=== PATIENT | female | born 1945 | race Hispanic/Latino ===

== ENCOUNTER 2016-12-29 10:32 | Outpatient (CLI) | payer MEDICARE ==
--- NOTE | 2016-12-29 12:47 | Mammography Report ---
BONE DEXA:12/29/16 10:32:00 CLINICAL: Postmenopausal. No comparison. TECHNIQUE: Two site bone DEXA performed on an Hologic scanner. FINDINGS: The average BMD of the lumbar spine L1-L4 is 0.820g/cm squared with a T-score of -2.1 and a Z-score of 0. The average BMD of the left hip is 0.619g/cm squared with a T-score of -2.6 and a Z-score of -1.2. IMPRESSION: 1. WHO classification: Osteopenia with increased fracture risk based on lumbar spine measurements. 2. WHO classification: Osteoporosis with high fracture risk based on left hip measurements. RECOMMENDATION: Clinical correlation and routine screening. DEFINITIONS: BMD = Bone Mineral Density T-score = BMD related to mean peak bone mass of young adult (mean expressed in Standard Deviation) Z-score = Age matched BMD expressed in SD World Health Organization (WHO) Diagnostic Criteria Normal T-score > -1 SD Osteopenia T-score between -1 and -2.4 SD Osteoporosis T-score -2.5 SD or below NOTE: BMD is not the only risk factor for fracture. One should also consider factors such as the patient's age, risk of falling, previous osteoporotic fracture, family history of osteoporotic fractures, current smoker, and low body weight. Z-scores are not calculated if >80 years of age.
== END 2016-12-29 10:33 | disposition home or self-care (01) ==
LOC: SPVWC 10:32
PROVIDERS: ATTEND Obstetrics & Gynecology
DX: M81.0 Age-related osteoporosis without current pathological fracture (principal); M85.88 Other specified disorders of bone density and structure, other site; Z78.0 Asymptomatic menopausal state
CPT/HCPCS: 77080

== ENCOUNTER 2017-05-23 13:36 | Outpatient (CLI) | payer MEDICARE ==
--- NOTE | 2017-05-23 15:54 | Mammography Report ---
Left mammogram screening mammogram: Routine views demonstrate a heterogeneously dense fibroglandular pattern which is symmetric in distribution. In the central left breast seen only in the MLO view there is a focal irregular shaped density which is not identified on several prior exams but may have been present 2012. This may represent a function of positioning. No changes are identified in the CC projection. The findings otherwise appear unremarkable and unchanged from multiple prior studies. CAD used. Impression: Left asymmetry. Recommendation: Lateral compression imaging of left breast. Ultrasound, if needed. BI-RADS CATEGORY: 0 = Needs additional imaging evaluation ACR BI-RADS MAMMOGRAPHIC CODES: 0 = Needs additional imaging evaluation; 1 = Negative; 2 = Benign; 3 = Probably benign; 4 = Suspicious; 5 = Malignant; 6 = Known biopsy-proven malignancy COMMENT: 1. Dense breast tissue, i.e., adenosis, fibrocystic changes, etc., may obscure an underlying neoplasm. 2. Approximately 10% of cancers are not detected with mammography. 3. A negative mammography report should not delay biopsy if a clinically suspicious mass is present.
== END 2017-05-23 13:37 | disposition home or self-care (01) ==
LOC: SPVWC 13:36
PROVIDERS: ATTEND Obstetrics & Gynecology
DX: Z12.31 Encounter for screening mammogram for malignant neoplasm of breast (principal)
CPT/HCPCS: 77067; G0202

== ENCOUNTER 2017-05-31 13:52 | Outpatient (CLI) | payer MEDICARE ==
--- NOTE | 2017-05-31 14:59 | Mammography Report ---
LEFT DIGITAL DIAGNOSTIC MAMMOGRAM and LEFT BREAST ULTRASOUND: 05/31/17 13:52:00 CLINICAL: Recalled for asymmetry. COMPARISON:05/23/17 screening mammogram FINDINGS: Lateralmedial, exaggerated CC and spot compression MLO views were performed. A partially circumscribed retroareolar asymmetry persists on MLO spot view but is not identified on the other views. Ultrasound of the left breast (including all four quadrants and the retroareolar area) was performed and demonstrated mild retroareolar duct ectasia with no mass, cyst or shadowing. IMPRESSION: Benign retroareolar duct ectasia. BI-RADS CATEGORY: 1 -- Negative RECOMMENDATION: Routine mammographic screening in one year. ACR BI-RADS MAMMOGRAPHIC CODES: 0 = Needs additional imaging evaluation; 1 = Negative; 2 = Benign; 3 = Probably benign; 4 = Suspicious; 5 = Malignant; 6 = Known biopsy-proven malignancy COMMENT: 1. Dense breast tissue, i.e., adenosis, fibrocystic changes, etc., may obscure an underlying neoplasm. 2. Approximately 10% of cancers are not detected with mammography. 3. A negative mammography report should not delay biopsy if a clinically suspicious mass is present. COMMENT: Patient follow-up letters are generated via our [employer] application.
== END 2017-05-31 13:53 | disposition home or self-care (01) ==
LOC: SPVWC 13:52
PROVIDERS: ATTEND Obstetrics & Gynecology
DX: N60.42 Mammary duct ectasia of left breast (principal)
CPT/HCPCS: 76641; G0206

== ENCOUNTER 2018-06-05 09:09 | Outpatient (CLI) | payer MEDICARE ==
--- NOTE | 2018-06-05 16:15 | Mammography Report ---
BILATERAL DIGITAL SCREENING MAMMOGRAM with CAD: 06/05/18 09:09:00 CLINICAL: Routine screening. COMPARISON:05/23/17 FINDINGS: The breasts are heterogeneously dense, which may obscure small masses. No mass, architectural distortion or suspicious calcifications. IMPRESSION: No mammographic evidence of malignancy. BI-RADS CATEGORY: 1 - - Negative RECOMMENDATION: Routine mammographic screening in one year. COMMENT: Patient follow-up letters are generated by our [employer] application.
== END 2018-06-05 09:10 | disposition home or self-care (01) ==
LOC: SPVWC 09:09
PROVIDERS: ATTEND Obstetrics & Gynecology
DX: Z12.31 Encounter for screening mammogram for malignant neoplasm of breast (principal)
CPT/HCPCS: 77067

== ENCOUNTER 2019-06-06 08:56 | Outpatient (CLI) | payer MEDICARE ==
--- NOTE | 2019-06-06 11:35 | Mammography Report ---
DIGITAL SCREENING MAMMOGRAM WITH CAD, 06/06/2019 INDICATION: Routine screening mammography. History of benign left surgical biopsy. TECHNIQUE: Digital bilateral 2D mammography was obtained in the craniocaudal and mediolateral obliq ue projections. This examination was interpreted with the benefit of Computer-Aided Detection analysi s. COMPARISON: 06/05/2018 FINDINGS: Breast Density: The breasts are heterogeneously dense, which may obscure small masses. Right parenchymal asymmetries on both views require additional imaging. No architectural distortion o r suspicious calcifications. There is no evidence of dominant mass, suspicious calcifications or arch itectural distortion in the left breast. IMPRESSION: Right asymmetries requiring additional imaging. Recommend recall for right lateral medial and spot magnification MLO and CC views and right breast ultrasound if needed. Follow up recommendation: Special View: Mag Category 0: Incomplete. Needs additional imaging evaluation and/or prior mammograms for comparison. A "normal" or negative report should not discourage follow up or biopsy of a clinically significant f inding. A written summary of these findings will be mailed to the patient. The patient will be entered into a mammography reporting system which will generate a reminder letter for the patient's next appointmen t at the appropriate interval. The [employer] recommends yearly mammograms starting at age 40 and continuing as l erna as a woman is in good health. Breast MRI is recommended for women with an approximate 20-25% or greater lifetime risk of breast cancer, including women with a strong family history of breast or ova raz cancer or who have been treated for Hodgkin's disease. Signer Name: Jevon Ivy MD Signed: 06/06/2019 11:31 AM Workstation Name: [id number]
== END 2019-06-06 08:57 | disposition home or self-care (01) ==
LOC: SPVWC 08:56
PROVIDERS: ATTEND Obstetrics & Gynecology
DX: Z12.31 Encounter for screening mammogram for malignant neoplasm of breast (principal)
CPT/HCPCS: 77067

== ENCOUNTER 2019-06-17 08:50 | Outpatient (CLI) | payer MEDICARE ==
--- NOTE | 2019-06-17 09:21 | Mammography Report ---
DIGITAL DIAGNOSTIC MAMMOGRAM WITH CAD, 06/17/2019 INDICATION: Recall for asymmetries. TECHNIQUE: Digital right mammographic imaging was performed. Magnification views were obtained. This examination was interpreted with the benefit of Computer-aided Detection analysis. COMPARISON: 06/06/2019 FINDINGS: Breast Density: The breasts are heterogeneously dense, which may obscure small masses. Lateral and MLO and CC magnification views are negative. IMPRESSION: No mammographic evidence of malignancy. Follow up recommendation: Routine yearly BI-RADS Category 1: Negative. A "normal" or negative report should not discourage follow up or biopsy of a clinically significant f inding. A written summary of these findings will be mailed to the patient. The patient will be entered into a mammography reporting system which will generate a reminder letter for the patient's next appointmen t at the appropriate interval. According to the [employer], yearly mammograms are recommended starting at age 40 and continuing as long as a woman is in good health. Breast MRI is recommended for women with an rachid roximately 20-25% or greater lifetime risk of breast cancer, including women with a strong family his tory of breast or ovarian cancer and women who have been treated for Hodgkin's disease. Signer Name: Jevon Ivy MD Signed: 06/17/2019 9:16 AM Workstation Name: [id number]
== END 2019-06-17 08:51 | disposition home or self-care (01) ==
LOC: SPVWC 08:50
PROVIDERS: ATTEND Obstetrics & Gynecology
DX: N64.89 Other specified disorders of breast (principal); R92.8 Other abnormal and inconclusive findings on diagnostic imaging of breast; R92.2 Inconclusive mammogram

== ENCOUNTER 2020-06-11 10:25 | Outpatient (CLI) | payer MEDICARE ==
--- NOTE | 2020-06-11 16:14 | Mammography Report ---
DIGITAL SCREENING MAMMOGRAM WITH CAD, 06/11/2020 INDICATION: Routine screening mammography. TECHNIQUE: Digital bilateral 2D mammography was obtained in the craniocaudal and mediolateral obliq ue projections. This examination was interpreted with the benefit of Computer-Aided Detection analysi s. COMPARISON: 06/17/2019, 06/06/2019, 06/05/2018 FINDINGS: Breast Density: The breasts are heterogeneously dense, which may obscure small masses. There is no evidence of dominant mass, suspicious calcifications or architectural distortion in eithe r breast. Scarring of the left breast is again seen. IMPRESSION: Follow up recommendation: Routine yearly BI-RADS Category 2: Benign. A "normal" or negative report should not discourage follow up or biopsy of a clinically significant f inding. A written summary of these findings will be mailed to the patient. The patient will be entered into a mammography reporting system which will generate a reminder letter for the patient's next appointmen t at the appropriate interval. The [employer] recommends yearly mammograms starting at age 40 and continuing as l erna as a woman is in good health. Breast MRI is recommended for women with an approximate 20-25% or greater lifetime risk of breast cancer, including women with a strong family history of breast or ova raz cancer or who have been treated for Hodgkin's disease. Signer Name: Titus Walker MD Signed: 06/11/2020 4:09 PM Workstation Name: [id number]
== END 2020-06-11 10:26 | disposition home or self-care (01) ==
LOC: SPVWC 10:25
PROVIDERS: ATTEND Obstetrics & Gynecology
DX: Z12.31 Encounter for screening mammogram for malignant neoplasm of breast (principal)
CPT/HCPCS: 77067

== ENCOUNTER 2021-06-14 10:19 | Outpatient (CLI) | payer MEDICARE ==
--- NOTE | 2021-06-15 08:00 | Mammography Report ---
BILATERAL DIGITAL SCREENING MAMMOGRAM WITH CAD INDICATION: Routine screening mammography. TECHNIQUE: Digital bilateral 2D mammography was obtained in the craniocaudal and mediolateral obliq ue projections. This examination was interpreted with the benefit of Computer-Aided Detection analysi s. COMPARISON: 06/11/2020, 06/17/2019, 06/04/2018. FINDINGS: Breast Density: The breasts are heterogeneously dense, which may obscure small masses. No suspicious mass, microcalcifications, or architectural distortion. Stable left lateral breast arch itectural distortion at site of prior surgery. IMPRESSION: No evidence of breast malignancy. Recommend routine screening mammogram in one year. BI-RADS Category 2: Benign. No mammographic evidence of malignancy. Recommend routine screening ma mmography in one year. A "normal" or negative report should not discourage follow up or biopsy of a clinically significant f inding. A written summary of these findings will be mailed to the patient. The patient will be entered into a mammography reporting system which will generate a reminder letter for the patient's next appointmen t at the appropriate interval. The [employer] recommends yearly mammograms starting at age 40 and continuing as l erna as a woman is in good health. Breast MRI is recommended for women with an approximate 20-25% or greater lifetime risk of breast cancer, including women with a strong family history of breast or ova raz cancer or who have been treated for Hodgkin's disease. Screening Signer Name: Олег Hayes MD Signed: 06/15/2021 7:55 AM Workstation Name: [id number]
== END 2021-06-14 10:20 | disposition home or self-care (01) ==
LOC: SPVWC 10:19
PROVIDERS: ATTEND Obstetrics & Gynecology
DX: Z12.31 Encounter for screening mammogram for malignant neoplasm of breast (principal); N64.89 Other specified disorders of breast
CPT/HCPCS: 77067